=== PATIENT | male | born 1995 | race Caucasian/White ===

== ENCOUNTER 2024-07-09 08:01 | Observation (INO) | payer SELFPAY ==
[2024-07-09 08:06] VITALS: BMI 25.7
[2024-07-09] MEDS ORDERED: KETOROLAC TROMETHAMINE 30 MG/1 ML VIAL ONE (08:41)
[2024-07-09] MEDS ORDERED: ONDANSETRON *ODT* 4 MG TABLET ONE (08:42)
[2024-07-09] MEDS: ONDANSETRON *ODT* 4 MG TABLET SL ONE (08:50)
[2024-07-09] MEDS: KETOROLAC TROMETHAMINE 30 MG/1 ML VIAL IM ONE (08:50)
[2024-07-09] MEDS: KETOROLAC TROMETHAMINE 15 MG/ML VIAL IVPUSH ONE ×2 (08:56→08:57)
[2024-07-09] MEDS: SODIUM CHLORIDE 1,000 ML IV STA ×2 (08:56→11:45)
[2024-07-09] MEDS ORDERED: ONDANSETRON 4 MG/2 ML VIAL ONE ×2 (09:00→11:40)
[2024-07-09] MEDS: ONDANSETRON 4 MG/2 ML VIAL IVPUSH ONE ×2 (09:01→11:45)
[2024-07-09 09:26] LABS: BASO % 0.5 % (0-2.0); EOS % 2.6 % (0-4.5); HEMATOCRIT 47.3 % (35.4-49); LYMPH % 50.5 % (8-40); MCH 28.8 pg (25.7-33.7); MCHC 33.9 g/dl (32.0-35.9); MEAN PLT VOLUME 7.8 fl (7.5-11.1); MONO % 5.2 % (3.8-10.2); NEUT % 41.2 % (42.8-82.8); PLATELET COUNT 281 10^3/uL (134-434); RBC 5.57 M/mm3 (4.00-5.60); RDW 13.6 % (11.9-15.9); WHITE BLOOD COUNT 5.4 K/mm3 (4.0-10.0)
[2024-07-09 09:29] LABS: EPI CELLS 9 /uL (0-25.1); HYALINE CASTS 0 /uL (0-3.1); PH,URINE 5.5 (5.0-8.0); URINE APPEARANCE TURBID; URINE BILIRUBIN 1+ (NEGATIVE); URINE COLOR ORANGE; URINE GLUCOSE (UA) NEGATIVE (NEGATIVE); URINE KETONE NEGATIVE (NEGATIVE); URINE LEUK ESTERASE 1+ (NEGATIVE); URINE NITRITE NEGATIVE (NEGATIVE); URINE PROTEIN 2+ (NEGATIVE); URINE UROBILINOGEN 0.2 mg/dL (0.2-1.0); URINE WBC 229 /uL (0-25.8)
[2024-07-09 09:34] LABS: POTASSIUM 3.8 mmol/L (3.5-5.1)
[2024-07-09 09:36] LABS: ALBUMIN 4.3 g/dl (3.4-5.0); BLOOD UREA NITROGEN 21.3 mg/dL (7-18); CALCIUM 9.6 mg/dL (8.5-10.1); MAGNESIUM 1.8 mg/dL (1.8-2.4)
[2024-07-09 09:40] LABS: CREATININE 1.3 mg/dL (0.55-1.3)
[2024-07-09 09:41] LABS: BILIRUBIN,TOTAL 0.6 mg/dL (0.2-1); TOT PROT 7.5 g/dl (6.4-8.2)
[2024-07-09] MEDS ORDERED: morphine SULFATE 4 MG/ML VIAL ONE ×2 (09:44→11:58)
[2024-07-09] MEDS: morphine CARPU-JECT 4 MG/1 ML DISP.SYRIN IVPUSH ONE ×2 (09:54→12:02)
[2024-07-09 10:16] LABS: URINE RBC 10398 /uL (0-23.9)
[2024-07-09] MEDS ORDERED: ACETAMINOPHEN INJECTION 100 ML ONE (11:18)
[2024-07-09] MEDS: ACETAMINOPHEN 1000 MG/100 ML BAG IVPB ONE (11:23)
[2024-07-09] MEDS ORDERED: TAMSULOSIN HCL 0.4 MG CAP ONE (13:03)
[2024-07-09] MEDS: TAMSULOSIN HCL 0.4 MG CAP PO ONE (13:10)
[2024-07-09 14:56] VITALS: BP 117/67; PULSE 80; RESP 20; TEMP 98
== END 2024-07-09 15:00 | disposition home or self-care (01) ==
LOC: JER 08:01 → JERBED 13:51
PROVIDERS: ADMIT Internal Medicine; ATTEND Internal Medicine
PROC: 3E033NZ Introduction of Analgesics, Hypnotics, Sedatives into Peripheral Vein, Percutaneous Approach (ICD-10-PCS; principal; 2024-07-09)
PROC: 3E0333Z Introduction of Anti-inflammatory into Peripheral Vein, Percutaneous Approach (ICD-10-PCS; 2024-07-09)
PROC: 3E0337Z Introduction of Electrolytic and Water Balance Substance into Peripheral Vein, Percutaneous Approach (ICD-10-PCS; 2024-07-09)
DX: M54.9 Dorsalgia, unspecified (principal); M54.50 Low back pain, unspecified
CPT/HCPCS: 36415; 74176-TC; 80053; 81003; 83735; 85025; 86850; 86900; 86901; 87086; 99285-25; G0378; J0131